=== PATIENT | female | born 1995 | race Caucasian/White ===

== ENCOUNTER 2019-03-11 19:04 | Emergency (ER) | payer OTHER, SELFPAY ==
[2019-03-11 19:09] VITALS: BP 132/87; PULSE 76; RESP 12; TEMP 37; O2SAT 100; BMI 40.3
--- NOTE | 2019-03-11 19:19 | ED_ITS ---
HPI - Back Pain/Injury General Chief Complaint: Back Pain/Injury Stated Complaint: hurt back at work on wednesday Time Seen by Provider: 03/11/19 19:05 Source: patient Mode of arrival: Ambulatory Limitations: no limitations History of Present Illness HPI Narrative: 23-year-old female nonsmoker with noncontributory medical history other and a chief complaint of midline back pain that happened with a work injury on Wednesday. She works as a caregiver and states that she was bending over, not twisting or lifting heavy when she felt a sudden pain in the middle of her back. She denies any radiation of the pain. She has no problems with control of bowel or bladder nor weakness of her lower extremities. She has no foot drop. She has had no fever chills, takes no blood thinners. She denies any trauma or direct impact with her bone. She is otherwise well and free of complaint. She states her pain is worse with motion and improves with rest. She has been taking Tylenol and Motrin and is using occasional heating pad. MD Complaint: back pain and back injury Onset (ago): day(s) Duration: intermittent Similar Symptoms Previously: No Location: lumbar spine Severity: moderate Quality: aching Radiation: none Relieving factors: immobilization Exacerbating factors: movement Context: bending Associated symptoms: denies other symptoms Treatments prior to arrival: NSAIDS and acetaminophen Related Data Previous Rx's Medication Instructions Recorded ketorolac 10 mg PO TID PRN #15 tab 03/11/19 lidocaine [Lidoderm] 1 patch TOP DAILY #15 each 03/11/19 Allergies Allergy/AdvReac Type Severity Reaction Status Date / Time No Known Drug Allergies Allergy Verified 03/11/19 19:13 Review of Systems Constitutional Constitutional: Denies chills, Denies fatigue, Denies fever(s), Denies frequent falls, Denies lethargy and Denies weakness Eyes Eyes: Denies change in vision, Denies eye discharge, Denies irritation and Denies loss of vision ENT Ears, Nose, Mouth, and Throat: Denies change in voice, Denies dizziness, Denies neck pain, Denies sore throat and Denies throat swelling Cardiovascular Cardiovascular: Denies chest pain, Denies irregular heart rhythm, Denies lightheadedness, Denies palpitations, Denies dyspnea, Denies dyspnea on exertion and Denies orthopnea Respiratory Respiratory: Denies cough, Denies dyspnea, Denies dyspnea on exertion and Denies wheezing Gastrointestinal Gastrointestinal: Denies abdominal pain, Denies change in bowel habits, Denies diarrhea, Denies nausea and Denies vomiting Genitourinary Genitourinary: Denies hematuria, Denies flank pain, Denies urinary incontinence and Denies urinary urgency Musculoskeletal Musculoskeletal: Reports back pain, Denies muscle weakness, Denies neck pain, Denies numbness and Denies tingling Integumentary/Breasts Skin/Breast: Denies pruritus, Denies erythema, Denies rash and Denies wounds Neurologic Neurologic: Denies behavioral changes, Denies confusion, Denies dizziness, Denies frequent falls, Denies loss of vision, Denies numbness, Denies tingling and Denies weakness Psychiatric Psychiatric: Denies anxiety, Denies behavioral changes, Denies confusion, Denies depression, Denies homicidal ideation and Denies suicidal ideation Endocrine Endocrine: Denies fatigue, Denies flushing and Denies palpitations Hematologic/Lymphatic Hematologic/Lymphatic: Denies easy bruising Allergic/Immunologic Allergic/Immunologic: Denies urticaria, Denies throat swelling and Denies wheezing Patient History Social History Smoking Status: Never smoker Smoking Status: Never smoker alcohol intake frequency: holidays/special occasions only Substance Use Type: marijuana Exam Narrative Exam Narrative: GENERAL: [23] year old patient appears stated age. Well- nourished, well-developed patient, in mild distress. HEAD: Atraumatic. Normocephalic. EYES: Pupils equal round and reactive. Extraocular motions intact. No scleral icterus. No injection or drainage. ENT: Nose without bleeding, purulent drainage. Throat without erythema, tonsillar hypertrophy or exudate. Airway patent. NECK: Trachea midline. Non tender CARDIOVASCULAR: Regular rate and rhythm without murmurs, gallops, or rubs. RESPIRATORY: Clear to auscultation. Breath sounds equal bilaterally. No wheezes, rales, or rhonchi. GASTROINTESTINAL: Abdomen soft, non-tender, nondistended. EXTREMITIES: No edema or joint tenderness. BACK: Nontender without deformity or crepitance. No flank tenderness. NEURO: AOx3. SKIN: No rash or erythema of visible areas BACK: mixing machine tender cork rod but free of any obvious external abnormalities. Patient exam notes decreased range of motion and muscle spasm, but no CVA tenderness, or vertebral point tenderness. There are no symptoms of cauda equina such as saddle anesthesia, and decreased reflexes, decreased sensation or strength. Initial Vital Signs Initial Vital Signs: Vital Signs Temperature 98.6 F 03/11/19 19:09 Pulse Rate 76 03/11/19 19:09 Respiratory Rate 12 03/11/19 19:09 Blood Pressure 132/87 03/11/19 19:09 Pulse Oximetry 100 03/11/19 19:09 Course Orders Ordered: Discontinued Medications Cyclobenzaprine HCl (Flexeril 10 Mg Prepack) 1 bottle MISC SEEINSTR ONE Stop: 03/11/19 19:27 Ketorolac Tromethamine (Toradol 10mg Prepack) 1 bottle MISC SEEINSTR ONE Stop: 03/11/19 19:27 Vital Signs Vital signs: Vital Signs - 8 hr 03/11/19 19:09 Temperature 98.6 F Pulse Rate 76 Respiratory Rate 12 Blood Pressure 132/87 Pulse Oximetry 100 Discharge Plan Departure Patient Disposition: Home Clinical Impression: Strain of lumbar region Qualifiers: Encounter type: initial encounter Qualified Code(s): S39.012A - Strain of muscle, fascia and tendon of lower back, initial encounter Instructions: DI for Back Strain or Sprain Activity Restrictions/Additional Instructions: *You have been diagnosed with [acute midline lumbar pain] *What to do: *Take medications as directed: Prescriptions electronically sent to [facility] at your request *Follow up with your primary care provider in 2-3 days, call for an appointment. Let them know you were seen in the Emergency Department and that we ask that you be seen in follow up *Return to ER if you should have any new, worsening or concerning symptoms, such as [increasing pain, trouble controlling bowel or bladder, weakness of the lower extremity, fever over 101 F or other bothersome symptoms] Prescriptions: New ketorolac 10 mg tablet 10 mg PO TID PRN (Reason: pain) Qty: 15 RF: 0 lidocaine [Lidoderm] 5 % adhesive patch,medicated 1 patch TOP DAILY Qty: 15 RF: 0 Stand Alone Forms: Work Release Note
[2019-03-11] MEDS: KETOROLAC 10MG PREPACK 1 BOTTLE MISC (19:42)
[2019-03-11] MEDS: CYCLOBENZAPRINE 10 MG PREPACK 1 BOTTLE MISC (19:42)
== END 2019-03-11 19:45 | disposition home or self-care (01) ==
PROVIDERS: Emergency Provider Emergency Medicine
DX: S39.012A Strain of muscle, fascia and tendon of lower back, initial encounter (principal); X50.1XXA Overexertion from prolonged static or awkward postures, initial encounter; Y93.F9 Activity, other caregiving; Y99.0 Civilian activity done for income or pay
CPT/HCPCS: 99281; 99282